=== PATIENT | male | born 1950 | race Caucasian/White ===

== ENCOUNTER 2021-06-20 14:13 | Day surgery (SDC) | payer MEDICARE, SELFPAY ==
[2021-06-20] VITALS (8 sets, daily range): BP systolic 126–167; BP diastolic 78–102; PULSE 85–102; RESP 16–20; TEMP 36.4–36.5; O2SAT 92–96; BMI 34.0
--- NOTE | 2021-06-20 | PATH_ITS ---
[facility] Accession Number: [id number] . 01 Material submitted: . PART A: colon - CECAL POLYP PART B: colon - ASCENDING COLON POLYP PART C: colon - POLYP AT 70 CM PART D: colon - SIGMOID COLON POLYP PART E: colon - POLYP AT 30 CM . 01 Clinical history: . SDC . 02 Diagnosis: A. Cecum, Polyp, Biopsy: Tubular adenoma. . B. Ascending Colon, Polyp, Biopsy: Tubular adenoma. . C. Colon, Polyp at 70 cm, Biopsy: Multiple fragments of tubular adenoma. . D. Sigmoid Colon, Polyp, Biopsy: Hyperplastic polyp. . E. Colon, Polyp at 30 cm, Biopsy: Tubulovillous adenoma. No evidence of malignancy or high-grade dysplasia. [facility] 06/24/2021 1302 Local . 02 Electronically signed: . Daylin Cosby MD, Pathologist NPI- [id number] . 01 Gross description: . A. Received in formalin and labeled with cecal polyp are two fragments of davila soft tissue measuring 0.4 x 0.3 x 0.2 cm to 0.3 x 0.3 x 0.3 cm. Both fragments are entirely submitted in cassette A1. B. Received in formalin and labeled with ascending colon polyp is one piece of davila soft tissue measuring 1.6 x 0.6 x 0.6 cm. The tissue is inked, bisected, and entirely submitted in cassette B1. C. Received in formalin and labeled with polyp at 70 cm are three pieces of davila soft tissue measuring 0.8 x 0.7 x 0.6 to 0.6 x 0.6 x 0.6 cm. Multiple fragments of davila soft tissue are also observed measuring 1.2 x 1.0 x 0.3 cm in aggregate. The largest piece of tissue is inked blue, trisected, and entirely submitted in cassette C1. The second piece of tissue is inked green, bisected and entirely submitted in cassette C1. The third piece of tissue is inked yellow, bisected and entirely submitted in cassette C1. Cassette C1 contains a total of seven pieces. The aggregate amounts of tissue are entirely submitted in cassette C2. D. Received in formalin and labeled with sigmoid colon polyp is one fragment of davila soft tissue measuring 0.7 x 0.3 x 0.2 cm. The fragment is entirely submitted in cassette D1. E. Received in formalin and labeled with polyp at 30 cm are multiple pieces of davila soft tissue ranging in size from 1.1 x 1.5 x 0.9 to 0.3 x 0.3 x 0.2 cm. The largest piece is inked, trisected, and entirely submitted in cassette E1. The second piece is inked, serially sectioned into four slices, and entirely submitted in cassette E2. The third piece is inked blue, bisected, and entirely submitted in cassette E3. The fourth piece is inked yellow, bisected, and entirely submitted in cassette E3. The fifth piece is inked green, bisected and entirely submitted in cassette E3. Cassette E3 contains a total of six pieces. The remaining six pieces are entirely submitted in cassette E4. ([id number]) /MRV 06/21/2021 0934 Local . 02 Pathologist provided ICD-10: D12.0, D12.2, D12.6 . 02 CPT . 341040, 135498, [id number], [id number], [id number] Performed at: 01 [facility] [address] [id number] MD Ahsan Potter MD Phone: [phone] Performed at: 02 [facility] [address] [place], [place] [id number] MD Daylin Cosby MD Phone: [phone]
[2021-06-20] MEDS: LACTATED RINGERS 1,000 ML 200 ML IV (14:48)
--- NOTE | 2021-06-20 14:57 | P.HP_ITS ---
History of Present Illness History of Present Illness Date Patient Seen: 06/20/21 Time Patient Seen: 14:57 Chief complaint: SDC Narrative: The patient presents for colorectal sreening. They have never had any previous examination for such. No personal or family history of colon cancer. He occasionally right red blood per rectum and had a positive fecal immunochemical test. No abdominal pain nausea vomiting. Patient History Medical History Diabetes mellitus Hyperlipidemia Hypertension Melanoma Obesity Shoulder pain Skin cancer Surgical History No history of previous surgery (01/04/16) Family & Social History Family History Father Stroke Mother No problems noted. Brother Hyperlipidemia Hypertension Sister No problems noted. Social History: household members none Tobacco & Substance use: Tobacco type cigarettes Smoking Status Current every day smoker Smoking packs per day 1 alcohol intake never Substance Use Type does not use Meds Home Medications and Allergies Home Medications Medication Instructions Recorded Confirmed Type VITAMIN D (Vitamin D3) 1,000 unit PO BID #1 12/26/11 History ascorbic acid (vitamin C) 500 mg 1,000 mg PO QDAY #0 tab 07/18/16 History tablet omeprazole 20 mg capsule,delayed 20 mg PO QDAY #90 cap 02/03/17 06/20/21 Rx release [CO-Q-10] 100 BID #0 02/13/17 History amlodipine 5 mg tablet (Norvasc) 5 mg PO QDAY #90 tab 03/02/17 Rx rosuvastatin 40 mg tablet (Crestor) 40 mg PO QDAY #90 tab 03/23/17 06/20/21 Rx triamterene 37.5 1 cap PO QDAY #90 cap 05/08/17 Rx mg-hydrochlorothiazide 25 mg capsule (Dyazide) ezetimibe 10 mg tablet (Zetia) 10 mg PO QDAY #90 tab 05/12/17 Rx metoprolol tartrate 50 mg tablet 50 mg PO BID #180 tab 05/15/17 06/20/21 Rx lisinopril 20 mg tablet 20 mg PO QDAY #90 tab 05/25/17 Rx Allergies Allergy/AdvReac Type Severity Reaction Status Date / Time No Known Drug Allergies Allergy Verified 06/20/21 14:47 Exam Vital Signs (past 8 hours): - 06/20/21 14:33 Temperature 97.7 F Pulse Rate 102 H Respiratory Rate 18 Blood Pressure 165/102 H Pulse Oximetry 96 Oxygen Delivery Method Room Air Narrative Exam Narrative: Constitutional-he is oriented to person, place and time. No apparent distress Cardiovascular- regular rate, no peripheral edema Pulmonary-unlabored respiratory effort, no audible wheezing Abdominal-soft, non-tender, non-distended Musculoskeletal-no cyanosis or clubbing Neurological-nonfocal, normal strength throughout, normal gait. Skin-warm and dry Assessment & Plan Assessment and plan (1) Positive FIT (fecal immunochemical test): Status: Acute Plan: The patient requires colorectal screening and colonoscopy is recommended. Technical details were discussed. Risks, benefits, alternatives explained. Risks including but not limited to myocardial infarction, aspiration, bleeding, pain, missed lesion, incomplete examination, need for further radiographic stud ies, colonic perforation, and need for major abdominal surgery were discussed. All questions were answered to their satisfaction, and they are in agreement with this plan. Time Spent With Patient Critical Care time: I spent a total of [] minutes of critical care time on this patient's care today; this time is exclusive of procedural time.
[2021-06-20] MEDS: DEXTROSE 5% WATER 1,000 ML 84 ML IV (15:00)
--- NOTE | 2021-06-20 16:01 | PM.OP.ENDO ---
Operative Date/Time/Diagnoses Date of procedure: 06/20/21 Time of procedure: 16:01 Pre-op diagnosis: Screening colonoscopy Post-op diagnosis: same Procedure & Clinicians Study performed: Colonoscopy Same procedure as scheduled: Yes Indications: Screening Surgeon: Maurice García Procedure Notes Procedure in detail: Medications: Conscious sedation using 7mg IV midazolam and 200mcg IV of fentanyl The history and physical was performed/updated and the patient is ASA class is 2. The procedure was discussed in detail with the patient. Potential risks complications including infection, bleeding, missed diagnosis, perforation, need for surgery, and were explained. Their questions were answered and informed consent was obtained. Patient was brought to the procedure room and placed standard monitoring equipment. The patient's vital signs were monitored continuously throughout the entire procedure. Prior to starting time-out was performed. The patient was placed in the left lateral recumbent position. Procedural sedation was administered. Examination began with a thorough inspection of the perianal area there was no evidence of fissures, fistulae, external hemorrhoids or cutaneous malignancy. The colonoscopy scope was then placed into the anal canal and was advanced to the cecum, which was identified by the ileocecal valve, and the confluence of the taenia. The scope was then slowly withdrawn examining colon thoroughly in all directions, irrigating it of any residual stool. FINDINGS 1.cecal polyp 5 mm removed for forecps 2. ascending colonic polyp 1 cm 3. polyp at 70 cm >1 cm removed with snare cold and tattooed with 4 ml of ink 4. polyp at 30 cm >1 cm removed in pieces with cold snare tattooed with 4 ml of ink 5. polyp sigmoid colon <1 cm removed with biopsy forceps The patient tolerated the procedure well. They will be discharged once criteria are met. The prep was of good/excellent quality. The withdrawl time was 20 minutes. The sedation time was 48 minutes. Specimen(s): other (cecal, ascending, 70 cm, sigmoid and 30 cm) Complications: none Impression: multiple colonic polyps Post-procedure Recommendations: Colonscopy in 1 year Disposition: same day surgery
--- NOTE | 2021-06-20 17:06 | DI.RAD.S_ITS ---
PROCEDURE: XR CHEST 1V INDICATIONS: sob post colonoscopy TECHNIQUE: One view of the chest was acquired. COMPARISON: Prasanth Neto, JASPREET, CHEST 2 VIEW, 12/27/2013, 11:02. FINDINGS: Surgical changes and devices: None. Lungs and pleura: Diffuse chronic interstitial changes without focal infiltrate. Low lung volumes accentuate pulmonary interstitium and heart size. Mediastinum: Mediastinal contours appear normal. Heart size is normal. Bones and chest wall: No suspicious bony lesions. Overlying soft tissues appear unremarkable. IMPRESSION: No acute cardiopulmonary findings Approved by: Ke Mixon M.D. on 06/20/2021 at 16:40
--- NOTE | 2021-06-20 17:08 | SUR.PHASEII ---
Assumed care from Fior, reported pt's sympto=ms to Dr. García, pt c/o sob, 86 sats on room air and abdominal pain, distended abdomen, CXR ordered and done.
--- NOTE | 2021-06-20 17:19 | SUR.PHASEII ---
Pt up to BR, steady when up on portable )@, Dr. Raquel luis xray. No new orders.
--- NOTE | 2021-06-20 18:07 | SUR.PHASEII ---
Pt back to bed, 02 down to 2/l will continue to wean, + flatus when up to BR, pt states he feels a little better, but feels like there is more gas to come out, belly still distended, firm. Instructed pt to lay on L side, pt refusing at this time. 02 down to 1/l, report to YORDY Fry
== END 2021-06-20 18:31 | disposition home or self-care (01) ==
PROVIDERS: Family Provider Family Medicine; PCP Family Medicine; Referring Provider Surgery; Visit Provider Surgery
PROC: 0DJD8ZZ Inspection of Lower Intestinal Tract, Via Natural or Artificial Opening Endoscopic (ICD-10-PCS; CPT 45378; principal; 2021-06-20 15:15)
DX: R19.5 Other fecal abnormalities (principal); F17.210 Nicotine dependence, cigarettes, uncomplicated; I10 Essential (primary) hypertension; E11.9 Type 2 diabetes mellitus without complications; E78.5 Hyperlipidemia, unspecified; D12.0 Benign neoplasm of cecum; D12.2 Benign neoplasm of ascending colon; D12.6 Benign neoplasm of colon, unspecified
CPT/HCPCS: 45385; 45380; 45381; 71045; 82962; 99152; 99153